=== PATIENT | male | born 1975 ===

== ENCOUNTER 2018-04-16 14:20 | Emergency (ER) | payer OTHER ==
[2018-04-16 14:20] VITALS: BMI 25.0
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
[2018-04-16] MEDS ORDERED: Oxycodone/Acetaminophen 5/325 mg Tab PO STA (15:02)
[2018-04-16 15:04] VITALS: TEMP 99
--- NOTE | 2018-04-16 15:40 | RAD ---
Date of service: 04/16/2018 PROCEDURE: Radiographs of the Left Shoulder HISTORY: lt. shoulder pain COMPARISON: No prior. FINDINGS: BONES: Normal. No fracture. JOINTS: Normal. Glenohumeral and acromioclavicular joints preserved. No osteoarthritis. SOFT TISSUES: Normal. OTHER FINDINGS: None. IMPRESSION: Normal radiographs of the left shoulder.
[2018-04-16] MEDS ORDERED: Sodium Chloride 0.9% 1,000 ML IV STA (15:44)
--- NOTE | 2018-04-16 16:06 | RAD ---
Date of service: 04/16/2018 HISTORY: medical clearance COMPARISON: 05/30/2016 FINDINGS: LUNGS: No active pulmonary disease. PLEURA: No significant pleural effusion identified, no pneumothorax apparent. CARDIOVASCULAR: There is aortic tortuosity. The heart is normal in size OSSEOUS STRUCTURES: No significant abnormalities. VISUALIZED UPPER ABDOMEN: Normal. OTHER FINDINGS: None. IMPRESSION: No active disease.
[2018-04-16 16:10] LABS: BASO # 0.02 K/mm3 (0.0-2.0); BASO % 0.3 % (0.0-3.0); EOS % 0.5 % (1.5-5.0); GRAN # 3.87 (1.4-6.5); GRAN % 58.2 % (50.0-68.0); HEMOGLOBIN 14.4 g/dL (14.0-18.0); LYMPH # 2.2 (1.2-3.4); LYMPH % 32.4 % (22.0-35.0); MEAN CELL VOLUME 81.5 fl (80.0-105.0); MEAN CORPUSCULAR HEMOGLOBIN 28.3 pg (25.0-35.0); MEAN CORPUSCULAR HGB CONC 34.7 g/dl (31.0-37.0); MEAN PLATELET VOLUME 8.9 fl (7.0-11.0); MONO # 0.6 (0.1-0.6); MONO % 8.6 % (1.0-6.0); RBC 5.09 10^6/uL (3.5-6.1); RED CELL DISTRIBUTION WIDTH 13.8 % (11.5-14.5); WHITE BLOOD COUNT 6.6 10^3/ul (4.5-11.0)
[2018-04-16 16:20] LABS: ALB/GLOB RATIO 1.2 (1.1-1.8); ALBUMIN 4.7 g/dL (3.0-4.8); ALT/SGPT 22 U/L (7-56); AST/SGOT 44 U/L (17-59); BLOOD UREA NITROGEN 12 mg/dL (7-21); CALCIUM 8.9 mg/dL (8.4-10.5); GFR AFRICAN-AMERICAN > 60; GFR NON-AFRICAN AMERICAN > 60
[2018-04-16 16:32] LABS: TROPONIN I < 0.01 ng/mL
[2018-04-16 16:36] LABS: CK-MB 1.4 ng/mL (0.0-3.6)
[2018-04-16 16:53] VITALS: BP 142/80; PULSE 104; RESP 18; O2SAT 99
--- NOTE | 2018-04-17 09:57 | CARD ---
APPROVED REPORT Date of service: 04/16/2018 EKG Measurement Heart [id number] <Conclusion> Poor data quality, interpretation may be adversely affected Sinus tachycardia Left axis deviation Voltage criteria for left ventricular hypertrophy Abnormal ECG
== END 2018-04-16 16:53 | disposition left against medical advice (07) ==
LOC: ED 14:20
DX: M25.512 Pain in left shoulder (principal); R00.0 Tachycardia, unspecified; R79.1 Abnormal coagulation profile; Z91.19 Patient's noncompliance with other medical treatment and regimen
CPT/HCPCS: 71045; 73030; 80053; 82550; 82553; 83615; 83735; 84484; 85025; 85378; 93005; 96360; 99285; J7030

== ENCOUNTER 2018-10-04 17:06 | Inpatient (IN) | payer OTHER ==
[2018-10-04 17:32] VITALS: BMI 27.8
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
[2018-10-04 18:36] LABS: ALB/GLOB RATIO 1.2 (1.1-1.8); ALBUMIN 4.5 g/dL (3.0-4.8); ALT/SGPT 39 U/L (7-56); AST/SGOT 46 U/L (17-59); BLOOD UREA NITROGEN 7 mg/dL (7-21); CALCIUM 9.9 mg/dL (8.4-10.5); GFR NON-AFRICAN AMERICAN > 60
[2018-10-04 18:44] LABS: BASO # 0.01 K/mm3 (0.0-2.0); BASO % 0.1 % (0.0-3.0); EOS % 0.3 % (1.5-5.0); HEMOGLOBIN 12.3 g/dL (14.0-18.0); LYMPH # 0.9 (1.2-3.4); LYMPH % 9.4 % (22.0-35.0); MEAN CELL VOLUME 86.6 fl (80.0-105.0); MEAN CORPUSCULAR HGB CONC 32.4 g/dl (31.0-37.0); MEAN PLATELET VOLUME 9.7 fl (7.0-11.0); MONO # 1.3 (0.1-0.6); MONO % 13.9 % (1.0-6.0); RBC 4.39 10^6/uL (3.5-6.1); RED CELL DISTRIBUTION WIDTH 13.9 % (11.5-14.5); WHITE BLOOD COUNT 9.5 10^3/uL (4.5-11.0)
[2018-10-04 18:46] LABS: TROPONIN I < 0.01 ng/mL
[2018-10-04 18:49] LABS: INR 1.1; PARTIAL THROMBOPLASTIN TIME 33.2 Seconds (26.9-38.3); PROTHROMBIN TIME 12.2 SECONDS (9.4-12.5)
[2018-10-04 18:52] LABS: FREE T4 0.99 ng/dL (0.78-2.19)
--- NOTE | 2018-10-04 18:52 | CT ---
Date of service: 10/04/2018 PROCEDURE: CT HEAD WITHOUT CONTRAST. HISTORY: s/p syncope COMPARISON: None available. TECHNIQUE: Axial computed tomography images were obtained through the head/brain without intravenous contrast. Radiation dose: Total exam DLP = 1141.69 mGy-cm. This CT exam was performed using one or more of the following dose reduction techniques: Automated exposure control, adjustment of the mA and/or kV according to patient size, and/or use of iterative reconstruction technique. FINDINGS: Streak artifact obscures evaluation of the skull base. HEMORRHAGE: No intracranial hemorrhage. BRAIN: No mass effect or edema. Mild scattered white matter hypodensities, which are nonspecific, but often seen with chronic microvascular ischemic disease. Please note that MRI with diffusion imaging is more sensitive in the detection of acute ischemic event. VENTRICLES: No hydrocephalus. CALVARIUM: Unremarkable. PARANASAL SINUSES: Unremarkable as visualized. No significant inflammatory changes. MASTOID AIR CELLS: Unremarkable as visualized. No inflammatory changes. OTHER FINDINGS: None. IMPRESSION: No acute intracranial pathology identified.
[2018-10-04 18:58] LABS: CK-MB 1.2 ng/mL (0.0-3.6)
--- NOTE | 2018-10-04 20:10 | CARD ---
APPROVED REPORT Date of service: 10/04/2018 EKG Measurement Heart [id number] <Conclusion> Normal sinus rhythm Voltage criteria for left ventricular hypertrophy Abnormal ECG
[2018-10-04 20:19] LABS: URINE BILIRUBIN MODERATE (NEGATIVE); URINE BLOOD TRACE-LYSED (NEGATIVE); URINE GLUCOSE (UA) NEGATIVE (NEGATIVE); URINE LEUKOCYTE ESTERASE NEGATIVE Leu/uL (NEGATIVE); URINE PROTEIN TRACE mg/dL (<30 mg/dL)
[2018-10-04 20:21] LABS: URINE APPEARANCE SL CLOUDY (CLEAR); URINE COLOR LIGHT BROWN (YELLOW)
[2018-10-04 20:29] LABS: URINE AMORPHOUS SEDIMENT FEW /hpf; URINE BACTERIA MANY /hpf; URINE FINE GRANULAR CAST 0 - 2 /hpf; URINE WBC 0 - 2 /hpf (0-6)
[2018-10-04 20:30] LABS: URINE HYALINE CAST 0 - 2 /hpf
[2018-10-04 20:33] LABS: BARBITURATES, UR NEGATIVE (NEGATIVE); BENZODIAZEPINES, UR NEGATIVE (NEGATIVE); OPIATES, UR NEGATIVE (NEGATIVE); PHENCYCLIDINE, UR NEGATIVE (NEGATIVE)
--- NOTE | 2018-10-05 10:29 | RAD ---
Date of service: 10/04/2018 HISTORY: admission COMPARISON: Comparison chest dated 04/16/2018 comparison also made with CT chest dated 05/23/2016 FINDINGS: LUNGS: Previously noted previously noted atelectatic and/or chronic scarring changes in the right posteromedial lung base and right posterior perihilar region less well seen compared to high-resolution CT scan. What could represent metallic clips and suture material also poorly seen. Persistent elevation right hemidiaphragm likely due to some retraction changes. PLEURA: No significant pleural effusion identified, no pneumothorax apparent. CARDIOVASCULAR: No aortic atherosclerotic calcification present. Normal cardiac size. No pulmonary vascular congestion. OSSEOUS STRUCTURES: No significant abnormalities. VISUALIZED UPPER ABDOMEN: Normal. OTHER FINDINGS: None. IMPRESSION: Previously noted previously noted atelectatic and/or chronic scarring changes in the right posteromedial lung base and right posterior perihilar region less well seen compared to high-resolution CT scan. What could represent metallic clips and suture material also poorly seen. Persistent elevation right hemidiaphragm likely due to some retraction changes.
--- NOTE | 2018-10-05 19:24 | CON ---
DATE: 10/05/2018 HISTORY OF PRESENT ILLNESS: This is a 43-year-old male with the past medical history not significant, came here with the complaint of syncopal episode and patient also has been complaining of intermittent dizziness. No nausea or vomiting and went to see his primary doctor, who sent him here for further workup. PAST MEDICAL HISTORY: As above. SOCIAL HISTORY: Does not smoke and does not drink. REVIEW OF SYSTEMS: A 10-point review of systems was negative. PHYSICAL EXAMINATION: CEREBELLAR: No dysmetria. Gait was deferred. IMPRESSION: Syncope, less likely seizure and workup in progress. CAT scan of the head was done, which was negative. We will followup. Imer Knapp MD
--- NOTE | 2018-10-06 00:46 | HP ---
DATE OF EXAM: 10/05/2018 The patient is a 43-year-old male. The patient was seen and examined at the bedside, 10/05/2018. CHIEF COMPLAINT: Anxiety and syncopal attack. HISTORY OF PRESENT ILLNESS: Mr. Luciano Mcdaniel is a 43-year-old male with past medical history of lung tumor, history of ethanol abuse and came to emergency room. Actually, the patient was seen in my office for evaluation of syncopal episode and laceration on the left side of the forehead, was very anxious, depressed, but do not want to hurt himself or hurt anybody else. The patient states that he has been having intermittent dizziness for few weeks and insomnia. The patient states that he has syncopal episode when he had dizzy last night. He came in my office, then I sent him to emergency room. The patient has a history of lung tumor. Surgery was done. History of ethanol abuse. The patient's work people send him to my office that he looks like different. PAST MEDICAL HISTORY: History of pneumonia. The patient has tumor in the right lower lobe of the lung after pneumonia, benign tumor removed. The patient also had chest tube at [facility]. The patient had syncopal attack. Same type of syncopal attack happened in 2016. History of benign tumor removed from lung, developed pneumonia. As per the patient, chest tube was placed. FAMILY HISTORY: Father and mother, noncontributory. HABITS: Former smoker. Former alcohol abuse. Now no smoking. No drugs. No ethanol. ALLERGIES: THE PATIENT IS NOT ALLERGIC WITH ANY MEDICATIONS. REVIEW OF SYSTEMS: The patient is seen and examined at the bedside. Looking comfortable. Still having pain in the forehead and headache. No hematuria. No hematochezia. No swelling of the legs. No chest pain or palpitations. PHYSICAL EXAMINATION: VITAL SIGNS: Temperature 98.5, pulse 81, blood pressure 122/70, and respiratory rate 18. HEENT: Head; normocephalic and atraumatic. Eyes; PERRLA. Extraocular muscles are intact. Conjunctivae clear. Nose patent. Mucous membranes moist. NECK: Supple. No carotid bruits, JVD, or thyromegaly. CHEST: Bilaterally symmetrical. HEART: S1 and S2 positive. LUNGS: Clear to auscultation. ABDOMEN: Soft. Bowel sounds present. No organomegaly. EXTREMITIES: No edema. No cyanosis. NEUROLOGIC: The patient is awake and alert. Follows simple commands. LABORATORY DATA: White blood cells 9.5, hemoglobin 12.3, hematocrit 38, and platelets 126. Sodium 136, potassium 3.7, BUN 7, creatinine 0.8, glucose 101, and creatine kinase 252. ASSESSMENT AND PLAN: Mr. Luciano Mcdaniel is a 43-year-old male with anemia, increased creatine kinase, proteinuria, ketonuria, and hematuria. Drug screening is negative. CAT scan of the head done, showed no acute intracranial pathology. Seen by Dr. Imer Knapp. Chest x-ray reviewed by me shows previously noted atelectasis and chronic scarring changes in the right posteromedial lung base and right posterior perihilar region less well seen compared to the high resolution CT scan, but will present metallic clipping and suture material also, poorly seen persistent elevation of the right hemidiaphragm likely due to some changes. We put Pulmonary consult. We will do CAT scan of the chest. The patient has history of anxiety. As per the patient, he is always anxious. I put consult with Dr. June Rodriguez. Started the patient on Xanax. Gastrointestinal and deep venous thrombosis prophylaxes given. Repeat labs. We will follow up. Leonora Belcher MD MTDD
[2018-10-06 08:03] LABS: HEMOGLOBIN 12.6 g/dL (14.0-18.0); MEAN CELL VOLUME 86.7 fl (80.0-105.0); MEAN CORPUSCULAR HGB CONC 32.3 g/dl (31.0-37.0); MEAN PLATELET VOLUME 9.7 fl (7.0-11.0); RBC 4.5 10^6/uL (3.5-6.1); RED CELL DISTRIBUTION WIDTH 13.7 % (11.5-14.5); WHITE BLOOD COUNT 9.4 10^3/uL (4.5-11.0)
[2018-10-06 08:21] LABS: IRON 58 ug/dL (45-180)
[2018-10-06 08:29] LABS: BLOOD UREA NITROGEN 7 mg/dL (7-21); CALCIUM 9.9 mg/dL (8.4-10.5); GFR NON-AFRICAN AMERICAN > 60; HDL CHOLESTEROL 85 mg/dL (29-60)
[2018-10-06 08:32] LABS: % IRON SATURATION 21 % (20-55); TOTAL IRON BINDING CAPACITY 283 ug/dL (261-462)
[2018-10-06 08:39] LABS: LDL CHOLESTEROL 71 mg/dL (0-129)
--- NOTE | 2018-10-06 10:00 | CP.PCM.PCO ---
Addendum Addendum: Patient is alert and well-oriented x3. He denies SI/HI or AVH. He defers on any psychiatric management, specifically stating his preference NOT to have a psychiatric evaluation. He was made aware that he can change his mind at any time and request our services. 10/06/18 09:59
--- NOTE | 2018-10-06 14:48 | CT ---
Date of service: 10/06/2018 PROCEDURE: CT Chest without contrast HISTORY: Lesions COMPARISON: Comparison made with CT chest 05/31/2016. TECHNIQUE: Contiguous axial images were obtained through the chest without intravenous contrast enhancement. Sagittal and coronal reconstructions were performed. Radiation dose: Total exam DLP = 334.96 mGy-cm. This CT exam was performed using one or more of the following dose reduction techniques: Automated exposure control, adjustment of the mA and/or kV according to patient size, and/or use of iterative reconstruction technique. FINDINGS: LUNGS: Redemonstrated are chronic appearing scarring/atelectasis and retraction changes in the right hilar region with posterior displacement and/or retraction the right pulmonary artery as well as right mainstem bronchus. There also appears to be some radiopaque suture material in the within the scarring/atelectasis and/or bronchiectatic changes superior aspect right posteromedial lower lung field. Clinical correlation with surgical history. In addition, there elevation of the right hemidiaphragm more so along the lateral margin of the hemidiaphragm with what appears represent some chronic scarring along the anterolateral pleural surface. Some minimal linear scarring seen in the anterior upper lobe bordering the high mediastinum as well. The some mild volume loss of the right hemithorax with apparent compensatory hyperinflation of the left lung in addition, there is overall the appearance is stable MEDIASTINUM: Heart size within range of normal. No significant pericardial effusion. No evidence of aneurysm. No significant atherosclerotic calcified plaque along the thoracic aorta. Few small nonspecific mediastinal lymph nodes are felt be present. There also appears to be localized retraction of the esophagus which extends towards the right as ago esophageal recess region over short distance. Fluid is present within the esophagus possibly secondary to dysmotility with incomplete clearing, reflux or some combination of the two. PLEURA: No pleural fluid. No pneumothorax. BONES: . There is minor chronic anterior wedge compression deformity of the T5-6 and to a lesser degree T4 segments with mild endplate deformity superior T6 and T9 segments. UPPER ABDOMEN: Grossly unremarkable. OTHER FINDINGS: None. IMPRESSION: Stable postoperative changes of presumed partial lobectomy right lung as described. There are areas of scarring/granulation tissue and bronchiectasis with retraction of portions of the right aspect of the mediastinum including the esophagus. Fluid is seen in the mid esophagus which could be secondary to dysmotility with incomplete clearing, reflux or some combination of the two. See above discussion for additional incidental findings.
[2018-10-06 18:06] LABS: FOLATE 12.7 ng/mL
--- NOTE | 2018-10-07 08:27 | CP.PCM.PCO ---
Physician Communication Note - Physician Communication Note Physician Communication Note: pt refused to have psych care, signed off
--- NOTE | 2018-10-07 19:14 | CON ---
DATE: 10/07/2018 LOCATION: Room 570, bed 2. REASON FOR CONSULTATION AND FOLLOWUP: Syncope. HISTORY OF PRESENT ILLNESS: The patient is a 43-year-old male says that he was dizzy and then he passed out. Denies chest pain, shortness of breath or palpitation associated with this episode. PAST MEDICAL HISTORY: The patient had pneumonia, after pneumonia, he was found to have tumor, but it was benign tumor for which he had surgery, also had chest tube insertion at that time at [facility]. The patient had another syncopal episode in 2016. FAMILY HISTORY: Not significant. PERSONAL HISTORY: The patient is an ex-smoker and ex-alcohol abuse. Now, he says he drinks socially. No illicit drug taken. ALLERGIES: NO HISTORY OF ANY ALLERGIES. REVIEW OF SYSTEMS: All the systems reviewed, positive mentioned in the history, others were negative. PHYSICAL EXAMINATION VITAL SIGNS: Blood pressure 121/81, respirations 18, pulse 78, and temperature 98.6. HEENT: Head is normocephalic. Eyes, pupils normal. Conjunctivae normal. NECK: JVP low. Carotids equal. THORAX: AP diameter normal. LUNGS: Clear. CARDIOVASCULAR: S1 and S2. ABDOMEN: Soft. No tenderness. No organomegaly. Bowel sounds normal. EXTREMITIES: No clubbing. No cyanosis. LABORATORY DATA: Lab shows WBC 9.4, hemoglobin 12.6, hematocrit 39.0, and platelet 161. Sodium 137, potassium 3.6, BUN 7, creatinine 0.8, magnesium 2.0, troponin less than 0.01, triglycerides 69, cholesterol 184, LDL 71, HDL 85, B12/folate level normal. EKG showed normal sinus rhythm, voltage criteria for LVH. Chest x-ray previously noted atelectatic chronic scarring changes in the right posteromedial lung base and right posterior perihilar region, persistent elevation of right hemidiaphragm, likely due to retraction changes. CT scan of the chest showed partial lobectomy, right lung radial scarring, granulation tissue and bronchiectasis with infection of the portion of the right aspect of mediastinum including esophagus, fluid seen in the mid esophagus which could be secondary to dysmotility with incomplete clearing reflux or some combination of the two. Head CT; no acute intracranial pathology noted. DIAGNOSES: Syncope, anemia. urine shows trace ketones, trace blood, and trace proteins. PLAN: Neuro consult has been requested with Dr. Knapp. The patient had history of anxiety, so consultation with Psychiatry was requested, but apparently, the patient has refused the psychiatry consult. We will do an echocardiogram and we will continue to monitor the patient. We will also check blood pressure 3 positions for postural hypotension. The patient is on Pepcid 40 mg p.o. at bedtime and Xanax 1 mg t.i.d. p.r.n. We will follow with you. Mame Orozco MD
--- NOTE | 2018-10-08 05:03 | PN ---
DATE: 10/07/2018 SUBJECTIVE: This is a 43-year-old male. The patient was seen and examined at the bedside on 10/07/2018. Looking comfortable. Sleepy, arousable. Moving all four extremities. No focal deficit. No headache. No dizziness. No chest pain. No palpitation. PHYSICAL EXAMINATION: VITAL SIGNS: Blood pressure 120/80, respiratory rate 18, pulse 78, temperature 98.6. HEENT: Head is normocephalic and atraumatic. Eyes, PERRLA. Extraocular movements intact. Conjunctivae clear. Nose patent. Mucous membranes moist. NECK: Supple. No carotid bruits. No JVD or thyromegaly. CHEST: Bilateral symmetrical. HEART: S1 and S2 positive. LUNGS: Clear to auscultation. ABDOMEN: Soft. Bowel sounds present. No organomegaly. EXTREMITIES: No edema. No cyanosis. NEUROLOGIC: The patient is awake, alert. Moving all four extremities. No focal deficit. LABORATORY DATA: White blood cells 9.4, hemoglobin 12.6, hematocrit 39, platelets 161. Sodium 137, potassium 3.6, BUN 7, creatinine 0.8. LDL 71. ASSESSMENT AND PLAN: Mr. Luciano Mcdaniel is a 43-year-old male with past medical history of pneumonia. Has a lung tumor that was benign tumor for which he had a surgery as per the patient. Also had a chest tube insertion at that time at [facility]. The patient had another syncopal episode in 2016. Now, he came with syncopal episode, anemia. Urine shows trace ketones, trace blood and trace protein. Neurologist, Dr. Knapp, is on the case. Awaiting for his input. The patient has a history of anxiety. Psychiatric consult was called. As per Psychiatry, the patient refused psychiatric admission. We will educate the patient. According to Cardiology, they will do echocardiography. We will do orthostatic hypotension. Pepcid and Xanax, we will continue. Appreciated Dr. Orozco's input and appreciated Dr. June Rodriguez's medication report. Reviewed CAT scan of the chest and CAT scan of the head. Consult with Dr. Imer Knapp. Less likely seizure workup in the process as per neurologist. We will do carotid Doppler of the neck. Gastrointestinal and deep venous thrombosis prophylaxis. We will follow. Leonora Belcher MD
[2018-10-08 07:49] LABS: HEMOGLOBIN 12.7 g/dL (14.0-18.0); MEAN CORPUSCULAR HGB CONC 32.2 g/dl (31.0-37.0); MEAN PLATELET VOLUME 9.4 fl (7.0-11.0); RBC 4.53 10^6/uL (3.5-6.1); RED CELL DISTRIBUTION WIDTH 13.8 % (11.5-14.5); WHITE BLOOD COUNT 8.2 10^3/uL (4.5-11.0)
[2018-10-08 08:34] LABS: BLOOD UREA NITROGEN 11 mg/dL (7-21); CALCIUM 9.9 mg/dL (8.4-10.5); GFR NON-AFRICAN AMERICAN > 60
[2018-10-08] MEDS ORDERED: Albuterol-Ipratrop 3 mg / 0.5 (3 ml) UD IH PRN (12:15)
--- NOTE | 2018-10-08 12:44 | CARD ---
APPROVED REPORT Date of service: 10/08/2018 EXAM: Two-dimensional and M-mode echocardiogram with Doppler and color Doppler. INDICATION Syncope 2D DIMENSIONS Left Atrium (2D)2.9 (1.6-4.0cm)IVSd1.2 (0.7-1.1cm) LVDd4.8 (3.9-5.9cm)PWd1.1 (0.7-1.1cm) LVDs4.0 (2.5-4.0cm)LVEF (%)35.0 (>50%) M-Mode DIMENSIONS Aortic Root3.10 (2.2-3.7cm)Aortic Cusp Exc.1.10 (1.5-2.0cm) Aortic Valve AoV Peak Wtgxglis004.0cm/Jose M Peak GR.10mmHg Mitral Valve MV E Ppeimymz83.8cm/sMV A Fepxzxfs38.1cm/sE/A ratio0.9 TDI E/Lateral E'0.0E/Medial E'0.0 Tricuspid Valve TR Peak Aenxijsm539ue/sRAP [id number] Peak Gr.10mmHg [id number] LEFT VENTRICLE The left ventricle is normal size. There is borderline concentric left ventricular hypertrophy. The systolic function is mildly to moderately impaired.EF_35% There is global hypokinesis of the left ventricle. Transmitral Doppler flow pattern is Grade III-reversible restrictive diastolic dysfunction. No left ventricle thrombus noted on this study. There is no ventricular septal defect visualized. There is no left ventricular aneurysm. There is no mass noted in the left ventricle. RIGHT VENTRICLE The right ventricle is normal size. There is normal right ventricular wall thickness. The right ventricular systolic function is normal. ATRIA The left atrium size is normal. The right atrium size is normal. The interatrial septum is intact with no evidence for an atrial septal defect. AORTIC VALVE The aortic valve is thickened but opens well. The aortic valve is probably bicuspid. There is mild to moderate aortic regurgitation. Aortic sclerosis Vs Mild There is no aortic valvular vegetation. MITRAL VALVE The mitral valve is thickened but opens well. Mitral regurgitation is mild to moderate. There is no mitral valve stenosis. There is no evidence of mitral valve prolapse. TRICUSPID VALVE The tricuspid valve leaflets are thickened , but open well. There is trace tricuspid regurgitation.RVSP-20 mmof hg. There is no tricuspid valve stenosis. There is no tricuspid valve prolapse or vegetation. PULMONIC VALVE The pulmonary valve is normal in structure. There is no pulmonic valvular regurgitation. There is no pulmonic valvular stenosis. GREAT VESSELS The aortic root is normal in size. The ascending aorta is normal in size. The pulmonary artery is normal. The IVC is normal in size and collapses >50% with inspiration. PERICARDIAL EFFUSION There is no pleural effusion. There is no pericardial effusion. <Conclusion> Normal chamber size. EFG-35% The aortic valve is thickened but opens well. The aortic valve is probably bicuspid. There is mild to moderate aortic regurgitation. Aortic sclerosis Vs Mild Mitral regurgitation is mild to moderate. There is trace tricuspid regurgitation.RVSP-20 mmof hg. The IVC is normal in size and collapses >50% with inspiration. There is no pericardial effusion.
--- NOTE | 2018-10-08 14:09 | CON ---
DATE: 10/08/2018 PULMONARY CONSULT NOTE REFERRING PHYSICIAN: Leonora Belcher MD REASON FOR CONSULT: Shortness of breath and syncopal episode. HISTORY OF PRESENT ILLNESS: This is a 43-year-old male who has past medical history significant for benign lung tumor which was removed, history of ethanol abuse, history of pneumonia, history of syncopal episode in 2016, history of chest tube placement, who presented to emergency department after seeing his primary care physician for syncopal episode. The patient report s feeling dizzy for weeks with some insomnia. He went to his primary care physician who referred him to come to the emergency department. At this point, denies dizziness, headache, weakness, chest pain, abdominal pain, nausea, vomiting, diarrhea, leg pain or leg swelling. He does report to having shortness of breath at times with and without exertion. No coughing. No rhinitis. PAST MEDICAL HISTORY: As per HPI. FAMILY HISTORY: No significant cardiopulmonary disease reported. ALLERGIES: NO KNOWN ALLERGIES. SOCIAL HISTORY: Former smoker, quit for approximately 10 years ago. He used to smoke less than one pack per day for over 10 years. Former EtOH abuse. No illicit drug use. MEDICATIONS: Tylenol 650 every 6 hours p.r.n., Xanax 1 mg three times a day p.r.n. and Pepcid 40 mg at bedtime. REVIEW OF SYSTEMS: No headache, dizziness, rhinitis, admits to snoring at night time, some day time sleepiness, tired, reports shortness of breath with and without exertion. No chest pain. No coughing. No abdominal pain, nausea, vomiting, diarrhea, leg pain or leg swelling reported. PHYSICAL EXAMINATION GENERA: No acute distress. VITAL SIGNS: Blood pressure 108/82, pulse 60, temperature 98.5 and oxygen saturation 98% on room air. HEENT: Moist mucous membranes. Mallampati score of 4. Crowded airway. NECK: Supple. No JVD. LUNGS: Fair airflow bilaterally. CARDIOVASCULAR: S1 and S2 audible. ABDOMEN: Soft and nontender. No distention. No organomegaly. EXTREMITIES: No bilateral lower extremity edema. NEUROLOGIC: Awake, alert, verbal, follows commands. LABORATORY DATA: Reviewed. WBC 8.2, RBC 4.53, hemoglobin 12.7, hematocrit 39.4 and platelets 195. Sodium 137, potassium 4.3, chloride 100, carbon dioxide 29, anion gap 12, BUN 11, creatinine 0.8, GFR greater than 60, random glucose 93 and calcium 9.9. Toxicology report was negative. Urinalysis shows urine protein trace, urine ketones trace, urine blood trace, urine bilirubin moderate, urine urobilinogen 1, urine RBC is [address] shows no acute intracranial pathology identified. EKG shows normal sinus rhythm. Chest x-ray shows atelectatic and/or chronic scarring changes in the right posteromedial lung base and right posterior perihilar region, left well seen compared to high resolution CT, persistent elevation of right hemidiaphragm. Chest CT shows stable postoperative changes of presumed partial lobectomy right lung, areas of scarring, granulation tissue and bronchiectasis with retraction of portion of the right aspect of the mediastinum including esophagus, fluid is seen in the mid esophagus which could be secondary to dysmobility with incomplete clearing, reflex or some combination of the two. Echocardiogram report pending. IMPRESSION AND PLAN: Syncope, anemia, history of anxiety, history of lobectomy for benign tumor in the past, history of pneumonia. The patient has trace ketones, blood and protein in the urine. We will get venous Doppler to bilateral lower extremity to rule out deep venous thrombosis. We will continue gastric prophylaxis. We will place the patient on deep venous thrombosis, will start the patient on inhaled bronchodilators. Continue Neurology followup. Awaiting urine cultures. Orthostatic vital signs were done and shows no orthostatic hypertension. Suspected sleep apnea syndrome, sleep apnea precaution, head of bed elevated at 45 degrees. As outpatient, would recommend sleep study and full pulmonary function test. We will review echocardiogram when available and provide further orders at that time. This patient seen and examined with Dr. Zarate. Discussed assessment and plan as described above. This patient seen with Devante North, nurse practitioner. Discussed assessment and plan as described above. Thank you for this consult. We will follow with you. Devante North APN Mame Zarate Md
--- NOTE | 2018-10-08 16:44 | PN ---
DATE: 10/08/2018 REASON FOR CONSULTATION AND FOLLOWUP: Cardiac evaluation for syncope. The patient denies any chest pain, shortness of breath or any palpitation. SUBJECTIVE: Not in apparent distress. PHYSICAL EXAMINATION: VITAL SIGNS: Temperature afebrile, heart rate 60, and blood pressure 108/62. The patient had orthostatic hypotension. Was checked lying 110/75, sitting 120/80, and standing 117/83. No evidence of orthostatic hypotension. HEENT: PERRLA, intact. NECK: Supple. No carotid bruits or thyromegaly. CHEST: Clear to auscultation. HEART: S1 and S2, regular. ABDOMEN: Soft. EXTREMITIES: Clubbing and cyanosis negative. LABORATORY DATA: WBC 8.8, hemoglobin 12, hematocrit 39.4, and platelet count 195. Chemistry shows sodium 133, potassium 4.2, chloride 100, carbon dioxide 29, anion gap of 12, BUN 11, and creatinine 0.8. IMPRESSION AND PLAN: A 43-year-old male with questionable history of seizure disorder in the past, history of benign tumor, status post surgery of the chest, admitted with syncope. 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 So far, no evidence of orthostatic hypotension. We will get echo to rule out any structural heart disease. We will follow with you. Thank you Dr. Belcher for providing us the opportunity in taking care of the patient Luciano Mcdaniel. Mame Urbina MD
--- NOTE | 2018-10-08 17:56 | US ---
HISTORY: Leg pain and swelling. Evaluate for DVT PHYSICIAN(S): Daniel Landeros MD. TECHNIQUE: Duplex sonography and color-flow Doppler with graded compression were used to evaluate the deep venous systems of both lower extremities. FINDINGS: The visualized deep venous systems of both lower extremities are sonographically normal and compressible. Normal wave forms and augmentation are seen. There is no sonographic evidence for deep venous thrombosis in the visualized segments of both lower extremities. IMPRESSION: No sonographic evidence for deep venous thrombosis in the visualized segments of both lower extremities.
--- NOTE | 2018-10-08 22:21 | PN ---
DATE: 10/06/2018 SUBJECTIVE: The patient is a 43-year-old male. The patient was seen and examined at the bedside on 10/06/2018, looking comfortable. No fever. No chills. No hematuria. No hematochezia. No swelling of legs. No chest pain. No palpitations. No headache. No dizziness. Sleep is better. Anxiety is better. PHYSICAL EXAMINATION: VITAL SIGNS: Temperature 98.6, pulse 94, blood pressure 120/86, and respiratory rate 18. HEENT: Head; normocephalic and atraumatic. Eyes; PERRLA. Extraocular muscles intact. Conjunctivae clear. Nose patent. Mucous membranes moist. NECK: Supple. No carotid bruits. No JVD or thyromegaly. CHEST: Bilaterally symmetrical. HEART: S1 and S2 positive. LUNGS: Clear to auscultation. ABDOMEN: Soft. Bowel sounds present. No organomegaly. EXTREMITIES: No edema. No cyanosis. NEUROLOGIC: The patient is awake, alert, and moving all 4 extremities. No focal deficits. MEDICATIONS: DuoNeb, Lovenox, Pepcid, Tylenol, and Xanax. LABORATORY DATA: White blood cell 9.4, hemoglobin 12.3, hematocrit 39, and platelets 161. Sodium 137, potassium 3.6, BUN 7, creatinine 0.8, and glucose 58. ASSESSMENT AND PLAN: Mr. Luciano Mcdaniel is a 43-year-old male with anemia, proteinuria, ketonuria, hematuria, and urinary tract infection. Drug screening is negative. CAT scan of the head is done. He came with dizziness, syncope, and history of lung tumor. No dysmetria. Gait was deferred. less likely seizure and work up is in the process. CAT scan of head reviewed. Appreciated neurologist input. Gastrointestinal and deep venous thrombosis prophylaxes. Repeat labs. We will follow up. Leonora Belcher MD MTDD
--- NOTE | 2018-10-09 04:01 | PN ---
DATE: 10/08/2018 SUBJECTIVE: The patient is a 43-year-old male. The patient was seen and examined at the bedside on 10/08/2018. Less shortness of breath. No coughing. No more syncope. No headaches. No dizziness. No rhinitis. for snoring at night and has sleep problem. No fever. No chills. No hematuria. No hematochezia. No headache. PHYSICAL EXAMINATION: VITAL SIGNS: Blood pressure 108/82, pulse 60, temperature 98.2, and oxygen saturation 98% on room air. HEENT: Head: Normocephalic, atraumatic. Eyes: PERRLA. Extraocular muscles are intact. Conjunctivae clear. Nose patent. NECK: Supple. No carotid bruit. No JVD or thyromegaly. CHEST: Bilaterally symmetrical. HEART: S1 and S2, positive. LUNGS: Clear to auscultation. ABDOMEN: Soft. Bowel sounds present. No organomegaly. EXTREMITIES: No edema. No cyanosis. NEUROLOGIC: The patient is awake and alert. Moving all 4 extremities. No focal deficit. MEDICATIONS: DuoNeb, Lovenox, Pepcid, Tylenol, and Xanax. LABORATORY DATA: White blood cells 8.2, hemoglobin 12.7, hematocrit 39.4, platelets 195. Sodium 137, potassium 4.3, BUN 11, creatinine 0.8, and glucose 96. ASSESSMENT AND PLAN: Mr. Luciano Mcdaniel is a 43-year-old male with anemia, proteinuria, ketonuria, and hematuria. Drug screening is negative. Has history of insomnia. Extremity Dopplers reviewed by me, within normal limits. 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 He has had pneumonia, and the patient has trace ketones. Neurology and Pulmonary are on the case. Called psychiatric consult, but the patient refused to see the psychiatrist. Urged to see the psychiatrist, but still the patient refused. Sleep apnea syndrome. I will taper down the Xanax. Repeat laboratories. We will follow up. Leonora Belcher MD [facility] # [id number] MTDD
[2018-10-09] MEDS: Aspirin 325 mg EC Tablets PO SCH (09:36)
[2018-10-09] MEDS ORDERED: Enoxaparin 40 mg Syringe SC SCH (10:00)
--- NOTE | 2018-10-09 11:32 | PN ---
DATE: 10/09/2018 REASON FOR CONSULTATION AND FOLLOWUP: Cardiac evaluation for syncope. SUBJECTIVE: The patient denies any chest pain, shortness of breath or any palpitation. OBJECTIVE: GENERAL: Not in apparent distress. VITAL SIGNS: Temperature afebrile, heart rate 70, and blood pressure 120/79. HEENT: PERRLA. Extraocular muscles are intact. NECK: Supple. No carotid bruits or thyromegaly. CHEST: Clear to auscultation. HEART: S1 and S2, regular. ABDOMEN: Soft. EXTREMITIES: Clubbing and cyanosis negative. LABORATORY DATA: Blood workup; WBC 8.2, hemoglobin 12.7, hematocrit 39.4, and platelet count 195. Chemistry shows sodium 137, potassium 4.3, chloride 100, carbon dioxide 29, anion gap of 12, BUN 11, and creatinine 0.8. The patient had an echocardiography done yesterday that revealed possibly bicuspid aortic valve, ejection fraction 35%, mild to moderate aortic regurgitation, mild aortic stenosis, mild to moderate mitral regurgitation, trace tricuspid regurgitation and RV systolic pressure of 20. PT/INR; PT is 12.2 and INR is 1.10. 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 On further intervention, the patient accepted that he was drinking at one point heavy after the divorce, 3 cans of 24 ounces of beer and couple of shots everyday and was very depressed, so possible this Cardiomyopathy could be related to alcohol, but needs to rule out ischemic CMP. We will do a stress test today. Depending upon his test, possibly the patient may need cardiac catheterization because of new onset of cardiomyopathy. Further recommendation depending upon the stress test. Most likely as mentioned, the patient may need cath. We will follow with you. Thank you Dr. Belcher for providing us the opportunity in taking care of the patient, Jonas Wolf. Discussed with the patient. If the patient needs stent, we will give Plavix 300 at 1 p.m. and 175 from tomorrow. We will discuss also with the patient for possibility of cardiac catheterization. Mame Urbina MD MTDDominic
--- NOTE | 2018-10-09 16:28 | PN ---
DATE: 10/09/2018 PULMONARY PROGRESS NOTE REFERRING PHYSICIAN: Leonora Belcher MD SUBJECTIVE: The patient is sitting up in bed. Head of bed elevated. No acute distress. No overnight events reported. The patient reports feeling well today. No headache, rhinitis, cough, chest pain, shortness of breath, abdominal pain, nausea, vomiting, diarrhea, leg pain, or leg swelling reported. OBJECTIVE: GENERAL: No acute distress. VITAL SIGNS: Blood pressure 122/80, pulse 91, temperature 98.8, and oxygen saturation 99% on room air. HEENT: Moist mucus membranes. Crowded airway. Mallampati score of 4. NECK: Supple. No JVD. LUNGS: Fair airflow bilaterally. CARDIOVASCULAR: S1 and S2 audible. ABDOMEN: Soft and nontender. No distension. No organomegaly. EXTREMITIES: No bilateral lower extremity edema. NEUROLOGIC: Awake, alert, verbal, and follows commands. MEDICATIONS: Reviewed. Tylenol 650 mg every 6 hours p.r.n., DuoNeb 3 mL inhalation every 4 hours p.r.n., Xanax 0.5 mg two times a day, aspirin 325 mg p.o. daily, Plavix 75 mg daily, Lovenox 40 mg daily, and Pepcid 40 mg at bedtime. LABORATORY DATA: Reviewed. Bilateral lower extremity ultrasound shows no sonographic evidence of deep venous thrombosis. Echocardiogram shows normal chamber size, ejection fraction 35%, RVSP 20 mmHg. Aortic valve is thickened, but opens well. [id number] aortic regurgitation, mitral regurgitation is [id number], trace tricuspid regurgitation. No pericardial effusion. Myocardial stress test report pending. IMPRESSION AND PLAN: Syncope, anemia, history of anxiety, history of lobectomy for benign tumor in the past, history of pneumonia, suspect sleep apnea syndrome, sleep apnea precaution, head of bed elevated at 45 degree. Stress test pending report. The patient would need sleep study and full pulmonary function test as outpatient. This patient seen and examined with Dr. Zarate. Discussed assessment and plan as described above. This patient seen with Devante North, nurse practitioner. Discussed assessment and plan as described above. Thank you for this consult. We will follow with you. Devante North APN Mame Zarate MD [facility] # [id number] GENNA
--- NOTE | 2018-10-09 16:53 | CARD ---
APPROVED REPORT Date of service: 10/09/2018 Protocol: NITO Test Type: Sestamibi Stress Test Attending Physician: Dr. Mame Orozco Referring Physician: Dr. Leonora Belcher Test Indications: Syncope, Cardiomyopathy Height:5 ft 8 in Weight:183lbs Medications: Tylenol,Duoneb,Xanax, Lovenox, Pepcid Medical History: 43 year old male with a history of SOB, depression, anxiety,Syncope Target HR: 175 bpm Resting ECG: RSR. Resting Heart Rate: 91 bpm Resting Blood Pressure: 122/80mmHg Submaximum (85%): 149 bpm POST EXERCISE Reason for Termination: Fatigue Target HR: No Max HR: 171 bpm 97% of Maximum Predicted HR: 175 bpm Exercise duration: 10:30 min:sec, 4 Stage Exercise capacity: 12.5METs Max Blood Pressure: 144/84mmHg Blood Pressure response to exercise: normal resting BP - appropriate response Heart Rate response to exercise: appropriate Chest Pain: No, none Angina index: 0 Arrhythmia: No, none ST Change: No, none Deviation: 0 mm INTERPRETATION Stress EKG Conclusion: MYOVIEW NUCLEAR STRESS TEST STOPPED AFTER 10 MINUTES AND 30 SECONDS OF NITO PROTOCOL DUE TO FATIGUE. PATIENT ACHIEVED 97% OF PREDICTED HEART RATE. NO CHEST PAIN. NO ST-T CHANGES. NUCLEAR SCAN REPORT PENDING. Signed by Mame Orozco Electronically Approved: 10/09/2018 10:34:39 EXAM: Myocardial Perfusion REST/STRESS Stress Test Type: Exercise Treadmill Imaging Protocol The imaging protocol used to acquire images was Rest Tc-99m/stress Tc-99m 1 day Rest Spect myocardial perfusion imaging was performed in supine position 55 minutes following the injection of 10.3 mCi of Tc-99 Myoview. At peak stress, the patient was injected intravenously with 30.2mCi of Tc-99 tetrofosmin after an exercise time of 10 minutes and 30 seconds. Gated Stress Spect was performed 65 minutes after intravenous Tc-99 Myoview injection. The images were gated to evaluate regional wall motion and calculate ventricular ejection fraction.Images were reconstructed using backfilter projection method in short horizontal and verticle long axis. Spect slices were generated. LV Perfusion The quality of the study is good. The left ventricle is mildly enlarged in size. The right ventricle is unremarkable. The lung uptake is normal. The distribution of tracer reveals a small area of moderately decreased perfusion involving apical and basal inferior zambrano on the stress study. The remainder of the LV myocardium is unremarkable. The rest myocardial perfusion study shows partial improvement of the apical defect and no signfiicant change in the inferior defect. Wall Motion Wall motion study shows borderline normal contractility of the left ventricle. LVEF = 49%. Conclusion 1. Probably abnormal SPECT myocardial perfusion study. 2. Partially reversible, apical defect is suspicious of ischemia. 3. Fixed, inferior defect is most likely due to diaphragmatic attenuation. 4. Borderline normal gated wall motion of the left ventricle.
--- NOTE | 2018-10-10 02:47 | PN ---
DATE: 10/09/2018 SUBJECTIVE: The patient is a 43-year-old male. The patient was seen and examined at the bedside on 10/09/2018. Looking comfortable. No fever. No chills. No hematuria or hematochezia. No headache, no dizziness. No chest pain. No palpitation. Sleep is getting better. Anxiety is getting better. PHYSICAL EXAMINATION: VITAL SIGNS: Blood pressure 120/80, pulse 91, temperature 98.2, oxygen saturation 99% on room air. HEENT: Head: Normocephalic and atraumatic. Eyes: PERRLA. Extraocular movements intact. Conjunctivae clear. Nose patent. Mucous membranes moist. NECK: Supple. No carotid bruits. No JVD or thyromegaly. CHEST: Bilaterally symmetrical. HEART: S1 and S2 positive. LUNGS: Clear to auscultation. ABDOMEN: Soft. Bowel sounds present. No organomegaly. EXTREMITIES: No edema. No cyanosis. NEUROLOGIC: The patient is awake, alert. Moving all four extremities. No focal deficit. MEDICATIONS: Tylenol, DuoNeb, Xanax, aspirin, Plavix, Lovenox, Pepcid. LABORATORY DATA: We do not have recent labs today, but I reviewed old labs. ASSESSMENT AND PLAN: Mr. Luciano Mcdaniel is a 43-year-old male with history of syncope, seen by the neurologist, anemia, anxiety, Psychiatry consult called but the patient refused. The patient had lobectomy for a benign tumor in the past as per patient. History of pneumonia, suspected sleep apnea syndrome. The patient went for stress test today. According to Dr. Kg Nevarez, the patient has probably abnormal SPECT myocardial perfusion study, partially reversible apical defect suspicious of ischemia. the fact that it is most likely due to the diaphragmatic attenuation, borderline normal gated wall motion of the left ventricle. Meanwhile, he is to continue present treatment. Reviewed Dr. Knapp's notes dictated on 10/05/2018. CAT scan of the head and chest reviewed. Repeat labs. We will follow up. Leonora Belcher MD MTDDominic
[2018-10-10] MEDS: Aspirin 325 mg EC Tablets PO SCH (06:47)
[2018-10-10] MEDS ORDERED: Lidocaine 2% Inj (20ml) ONE (06:53)
[2018-10-10] MEDS ORDERED: Iohexol 350mgl/ml 50 ML ONE (06:54)
[2018-10-10] MEDS ORDERED: Nitroglycerin 50mg in D5W 50 MG/250 ML BOTTLE IV ONE (06:54)
[2018-10-10] MEDS ORDERED: Iodixanol 320 MG/ML 200 ML BOTTLE IV ONE (06:54)
[2018-10-10] MEDS ORDERED: Iodixanol 320 MG/ML 100 ML BOTTLE IV ONE (06:54)
[2018-10-10] MEDS ORDERED: Verapamil 2 ML ONE (06:54)
[2018-10-10] MEDS ORDERED: Phenylephrine 10 mg/ml Inj ONE (06:54)
[2018-10-10] MEDS ORDERED: Midazolam 2 MG/2 ML VIAL ONE ×2 (07:33→07:55)
[2018-10-10] MEDS ORDERED: Bacitracin 500 Units/gm Oint Foilpak UD TOP ONE (08:19)
[2018-10-10 08:28] VITALS: O2SAT 97
[2018-10-10] MEDS ORDERED: Sodium Chloride 0.9% 1,000 ML IV SCH (08:30)
--- NOTE | 2018-10-10 09:26 | CPOSTOP ---
DATE: 10/10/2018 CARDIOVASCULAR LAB POSTPROCEDURE NOTE PHYSICIAN: Mame Urbina MD LEAN MANAGER: Clyde Parry. TYPE OF ANESTHESIA: Moderate conscious sedation. Total 2 mg of Versed and 100 of fentanyl given, periodically. Started 1 mg of versed and 50 of fentanyl. PRE-PROCEDURE CONDITION: Unstable angina, abnormal stress test, anteroseptal Ischemia, decreased LV function. PROCEDURE PERFORMED: Left heart catheterization. FINDINGS: Normal coronaries, nonischemic cardiomyopathy. FINAL DIAGNOSIS: Nonischemic cardiomyopathy. POST PROCEDURE CONDITION: The patient's condition is stable. VASCULAR ACCESS SITE: Left radial. CLOSURE DEVICE: TR-band. TOTAL RADIATION DOSE: 3512.97 milligray unit. TOTAL FLUORO TIME: 1.4 minutes. Mame Urbina MD MTDD
--- NOTE | 2018-10-10 12:39 | PN ---
DATE: 10/10/2018 REFERRING PHYSICIAN: Leonora Belcher MD SUBJECTIVE: The patient is sitting up in bed. Reports feeling well today. No headache, rhinitis, cough, shortness of breath, chest pain, abdominal pain, nausea, vomiting, diarrhea, leg pain, leg swelling reported. The patient is status post left heart catheterization. PHYSICAL EXAMINATION: VITAL SIGNS: Blood pressure 125/68, pulse 80, temperature 98, oxygen saturation 97% on room air. GENERAL: No acute distress. HEENT: Moist mucous membranes. Crowded airway. Mallampati score of 4. NECK: Supple, no JVD. LUNGS: Fair airflow bilaterally. CARDIOVASCULAR: S1 and S2 audible. ABDOMEN: Soft, nontender, no distention, no organomegaly. EXTREMITIES: No bilateral lower extremity edema. NEUROLOGICAL: Awake, alert, verbal. Follows commands. MEDICATIONS: Reviewed. Tylenol 650 every 6 hours p.r.n., DuoNeb 3 mL inhalation every 4 hours p.r.n., Xanax 0.25 mg p.o. daily, Coreg 3.125 mg twice a day, Lovenox 40 mg subcutaneous daily, Pepcid 40 mg at bedtime, sodium chloride 0.9% 1000 mL at 100 mL per hour. LABORATORY DATA: Reviewed. Myocardial stress test shows probably abnormal SPECT myocardial perfusion study, partially reversible apical defect, suspicious of ischemia, fixed inferior defect is most likely due to diaphragmatic attenuation, borderline normal gated wall motion of the left ventricle. IMPRESSION AND PLAN: Syncope, anemia, history of anxiety, history of lobectomy for benign tumor in the past, history of pneumonia. Suspected sleep apnea syndrome. Continue p.r.n. inhaled bronchodilators. Head of bed elevated to 45 degrees. Sleep apnea precautions. Continue Cardiology followup. The patient would need sleep study and full pulmonary function test as outpatient. This patient was seen and examined with Dr. Zarate. Discussed assessment and plan as described above. This patient seen with Devante North, nurse practitioner. Discussed assessment and plan as described above. Thank you for this consult. We will follow with you. Devante North APN Mame Zarate MD [facility] # [id number]
[2018-10-10 12:43] VITALS: RESP 16
--- NOTE | 2018-10-10 14:44 | CARD ---
APPROVED REPORT Date of service: 10/10/2018 Procedure(s) performed: Left Heart Catheterization HISTORY The patient is a 43 year-old male with a history of : most recent EF: 49%. (EF Method: RADIONUCLIDE), chronic lung disease, tobacco history() : The patient is a former smoker , Admitted with syncope, echo showed EF-35%, stress test showed Apical Ischemia.. INDICATION The indication(s) include : positive stress test, chest pain, dyspnea, syncope. CASE TECHNIQUE The patient was brought electively to the Cardiac Catheterization Laboratory in a fasting state and was prepped and draped in a sterile manner. The left wrist was infiltrated with 2% Lidocaine subcutaneous anesthesia. A 6FR GLIDESHEATH ACCESS KIT sheath was inserted into the left radial artery without difficulty. Coronary angiography was performed using coronary diagnostic catheters. The left coronary system was accessed and visualized with a Diagnostic ,5F JL 4 CATH DXT 100 CM catheter. The right coronary system was accessed and visualized with a Diagnostic ,5F JR 4 CATH DXT 100 CM catheter. The left ventricle was accessed and visualized with a 5F PIGTAIL 145 CATH DXT 110 CM catheter. Left ventricular/Aortic Valve gradient assessed on pullback. Left ventriculogram was performed in DUNCAN projection. Closure device was deployed with a Fr TR Band (Regular) without any complications. The patient tolerated the procedure well and there were no complications associated with the procedure. Vessel Analysis The patient's coronary anatomy is right dominant. The left main coronary artery is a large size vessel without significant stenosis. The left main bifurcates to the left anterior descending and circumflex. The left anterior descending artery is a medium size vessel without significant stenosis. The first diagonal branch is a medium size vessel with intimal irregularities and without significant stenosis. The circumflex artery is a medium size vessel without significant stenosis. The first obtuse marginal branch is a medium size vessel without significant stenosis. The second obtuse marginal branch is a medium size vessel without significant stenosis. The third obtuse marginal branch is a medium size vessel without significant stenosis. The right coronary artery is a medium size vessel with intimal irregularities and without significant stenosis. The right posterior descending artery is a medium size vessel with diffuse calcification noted throughout this vessel and without significant stenosis. The right posterolateral branch is a small size vessel with intimal irregularities and without significant stenosis. Left Ventricle The left ventricle is normal in size with mild to moderately decreased contractility. Non-Ischemic cardiomyopathy. The left ventricular ejection fraction is estimated to be 35-40%. The left ventricular end diastolic pressure is 15 mmHg. There was no gradient across the aortic valve upon pullback. Conclusion Normal coronaries Non Iscjhemic VOA-NH-56-40%, EDP-15 mmof hg. CMP , most likely secondary to ETOH abuse. Recommendations Aggressive Medical TherapyCardiac Risk Reduction Program Complete Abstinence of alcohol. Low dose of Coreg as BP is tolerated. Consider low dose SHANTEL lisinopril 1.25 mg if BP is tolerated. Re-Assess LvFX in 3-6 months, if remains Less than 35% consider AICD. Cc; dr. Belcher.
[2018-10-10] MEDS ORDERED: Bacitracin 500 Units/gm Oint Foilpak UD ONE (15:21)
[2018-10-10 16:49] VITALS: TEMP 97.7
[2018-10-10 17:37] VITALS: BP 114/70; PULSE 70
== END 2018-10-10 18:36 | disposition home or self-care (01) | DRG 287 ==
LOC: ED 17:06 → ERH 19:12 → 5RSO 10-05 00:18 → OBSVTOIN 10-06 23:13 → 5RSO 10-07 21:38 → 2RSO 10-10 08:46
PROVIDERS: ADMIT Internal Medicine; ATTEND Internal Medicine
PROC: 4A023N7 Measurement of Cardiac Sampling and Pressure, Left Heart, Percutaneous Approach (ICD-10-PCS; principal; 2018-10-10)
PROC: B211YZZ Fluoroscopy of Multiple Coronary Arteries using Other Contrast (ICD-10-PCS; 2018-10-10)
PROC: B215YZZ Fluoroscopy of Left Heart using Other Contrast (ICD-10-PCS; 2018-10-10)
DX: R55 Syncope and collapse (principal); J98.11 Atelectasis; I42.6 Alcoholic cardiomyopathy; R42 Dizziness and giddiness; F10.10 Alcohol abuse, uncomplicated; F41.9 Anxiety disorder, unspecified; G47.00 Insomnia, unspecified; D64.9 Anemia, unspecified; Z87.01 Personal history of pneumonia (recurrent); Z87.891 Personal history of nicotine dependence